=== PATIENT | female | born 1985 | race Caucasian/White ===

== ENCOUNTER → 2017-09-13 | Outpatient (CLI) | payer OTHER | LOC: COL.CARD 08:01 | DX: G08 Intracranial and intraspinal phlebitis and thrombophlebitis (principal); R42 Dizziness and giddiness | CPT/HCPCS: A9585 ==

== ENCOUNTER → 2017-09-13 | Outpatient (CLI) | payer OTHER ==
[2017-09-13 17:08] LABS: INR 1.7 (0.8-3.0); PROTHROMBIN TIME 19.2 SECONDS (9.7-12.8)
== END ==
LOC: COL.LAB 16:32
DX: Z01.89 Encounter for other specified special examinations (principal)